=== PATIENT | female | born 1985 | race Caucasian/White ===

== ENCOUNTER 2022-09-19 05:15 | Inpatient (IN) | payer BC ==
[2022-09-19] MEDS: Lactated Ringers 1,000 ML IV SCH ×2 (05:30→07:09)
[2022-09-19] MEDS ORDERED: Lidocaine 1% 50 ML MDV INJECT PRN (05:56)
[2022-09-19] MEDS ORDERED: Sodium Chloride 0.9% 2.5 ML Syringe FLUSH PRN (05:56)
[2022-09-19] MEDS ORDERED: Citric Acid/Sodium Citrate Solution 30 ML Cup PO ONE (05:56)
[2022-09-19] MEDS ORDERED: Misoprostol 200 MCG Tab PO PRN (05:56)
[2022-09-19] MEDS ORDERED: Tranexamic Acid 1,000 MG in Sodium Chloride 0.9% 100 ML IV PRN ×2 (05:56→09:44)
[2022-09-19] MEDS ORDERED: Water For Irrigation,Sterile 1,000 ML Container IRR PRN (05:56)
[2022-09-19] MEDS ORDERED: Methylergonovine 0.2 MG/1 ML Amp IM PRN ×2 (05:56→09:44)
[2022-09-19] MEDS ORDERED: Sodium Chloride 0.9% 10 ML Syringe FLUSH PRN (05:56)
[2022-09-19] MEDS ORDERED: Sodium Chloride 0.9% 20 ML SDV IV PRN (05:56)
[2022-09-19] MEDS ORDERED: Carboprost Tromethamine 250 MCG/1 mL Vial IM PRN (05:56)
[2022-09-19] MEDS ORDERED: ceFAZolin 2 GM in Sodium Chloride 0.9% 50 ML IV ONE (05:56)
[2022-09-19] MEDS ORDERED: Lactated Ringers 1,000 ML IV SCH ×2 (06:00→09:45)
[2022-09-19] MEDS ORDERED: Oxytocin/0.9 % Sodium Chloride 30 UNIT/500 ML BAG IV SCH (06:00)
[2022-09-19 06:20] LABS: HEMATOCRIT 37.4 % (36.0-46.0); HEMOGLOBIN 12.5 g/dL (12.0-16.0); MEAN CORPUSCULAR HEMOGLOBIN 31.4 pg (27.0-32.0); MEAN CORPUSCULAR HGB CONC 33.4 g/dL (31.0-37.0); MEAN PLATELET VOLUME 11.5 fL (7.40-12.00); RED BLOOD CELL COUNT 3.98 M/uL (4.30-5.90); WHITE BLOOD CELL COUNT,WBC 8.77 K/uL (4.0-11.0)
[2022-09-19] MEDS ORDERED: Morphine PF 10 MG/10 ML SDV ONE (07:45)
[2022-09-19] MEDS ORDERED: Dexmedetomidine 200 MCG/2 ML SDV ONE (07:47)
[2022-09-19] MEDS ORDERED: Ondansetron 4 MG/2 ML SDV ONE (07:47)
[2022-09-19] MEDS ORDERED: ceFAZolin 2 GM Vial ONE (08:09)
[2022-09-19] MEDS ORDERED: Water For Injection, Sterile 20 ML ONE (08:10)
[2022-09-19] MEDS ORDERED: Phenylephrine HCl 0.5 MG/5 ML AMP ONE ×3 (08:13→08:40)
[2022-09-19] MEDS ORDERED: Oxytocin 10 Units/1 ML SDV ONE (08:15)
[2022-09-19] MEDS ORDERED: Ropivacaine 0.5% 5 MG/ML 30 ML SDV ONE (08:38)
[2022-09-19] MEDS ORDERED: Ketorolac 30 MG/ML SDV ONE (08:51)
[2022-09-19] MEDS ORDERED: Ondansetron 4 MG/2 ML SDV IVPUSH PRN ×2 (09:22→09:44)
[2022-09-19] MEDS ORDERED: ePHEDrine 50 MG/ML SDV IVPUSH PRN (09:22)
[2022-09-19] MEDS ORDERED: diphenhydrAMINE 50 MG/ML SDV IVPUSH PRN ×2 (09:22→09:44)
[2022-09-19] MEDS ORDERED: Oxytocin 10 Units/1 ML SDV IM PRN (09:44)
[2022-09-19] MEDS ORDERED: Misoprostol 200 MCG Tab RECTAL PRN (09:44)
[2022-09-19] MEDS ORDERED: Bisacodyl 10 MG Supp RECTAL PRN (09:44)
[2022-09-19] MEDS ORDERED: Lanolin 100% Cream 7 GM Tube TOP PRN (09:44)
[2022-09-19] MEDS ORDERED: Acetaminophen/oxyCODONE 325-5 MG Tab PO PRN (09:44)
[2022-09-19 10:04] LABS: PH,UMBILICAL ARTERIAL 7.232 (7.18-7.38); PH,UMBILICAL VENOUS 7.344 (7.25-7.45)
[2022-09-19] MEDS: Ketorolac 30 MG/ML SDV IVPUSH SCH ×2 (15:01→20:52)
[2022-09-19] MEDS: Acetaminophen 500 MG Tab PO SCH ×2 (15:02→20:51)
[2022-09-19] MEDS: Docusate Sodium 100 MG Cap PO SCH (20:52)
[2022-09-20] MEDS: Acetaminophen 500 MG Tab PO SCH ×2 (03:02→08:57)
[2022-09-20] MEDS: Ketorolac 30 MG/ML SDV IVPUSH SCH ×2 (03:02→08:57)
[2022-09-20 05:46] LABS: HEMATOCRIT 34.3 % (36.0-46.0); HEMOGLOBIN 11.7 g/dL (12.0-16.0)
[2022-09-20] MEDS: Docusate Sodium 100 MG Cap PO SCH ×2 (08:57→21:27)
[2022-09-20] MEDS: Acetaminophen/oxyCODONE 325-5 MG Tab PO PRN ×3 (13:29→21:26)
[2022-09-20] MEDS: Ibuprofen 800 MG Tab PO PRN (16:23)
[2022-09-21] MEDS: Ibuprofen 800 MG Tab PO PRN ×2 (00:16→11:22)
[2022-09-21] MEDS: Acetaminophen/oxyCODONE 325-5 MG Tab PO PRN ×3 (04:03→11:23)
[2022-09-21] MEDS: Docusate Sodium 100 MG Cap PO SCH (08:05)
[2022-09-21 09:43] VITALS: BP 119/68; PULSE 63
== END 2022-09-21 11:55 | disposition home or self-care (01) | DRG 540 ==
LOC: MW.OB 05:15 → OBSVTOIN 05:22 → MW.OB 16:08
PROVIDERS: ADMIT Obstetrics & Gynecology; ATTEND Obstetrics & Gynecology
PROC: 10D00Z1 Extraction of Products of Conception, Low, Open Approach (ICD-10-PCS; principal; 2022-09-19)
PROC: 0T9B70Z Drainage of Bladder with Drainage Device, Via Natural or Artificial Opening (ICD-10-PCS; 2022-09-19)
DX: O34.211 Maternal care for low transverse scar from previous cesarean delivery (principal); O99.892 Other specified diseases and conditions complicating childbirth; H92.01 Otalgia, right ear; Z97.3 Presence of spectacles and contact lenses; Z98.890 Other specified postprocedural states; Z37.0 Single live birth; Z3A.39 39 weeks gestation of pregnancy
CPT/HCPCS: 36415; 59025; 82803; 85014; 85018; 85027; 86592; 86850; 86900; 86901; A9270-GY; J0131; J0690; J1200; J1885; J2274; J2370; J2405; J2590; J2795; J3490; J7120